=== PATIENT | female | born 1980 | race African-American/Black ===

== ENCOUNTER 2016-07-17 15:35 | Emergency (ER) | payer OTHER ==
[2016-07-17 15:46] VITALS: BP 139/87; PULSE 74; TEMP 98.8; BMI 23.4
--- NOTE | 2016-07-17 16:51 | PDOC ---
History of Present Illness - General Chief Complaint: Pain, Acute Stated Complaint: LEG PAIN Time Seen by Provider: 07/17/16 16:29 History Source: Patient - History of Present Illness Occurred: reports: other Lower Extremity Pain Location: left: leg Past History - Past Medical History Allergies/Adverse Reactions: Allergies Allergy/AdvReac Type Severity Reaction Status Date / Time No Known Drug Allergies Allergy Verified 07/17/16 15:46 Home Medications: Ambulatory Orders NK [No Known Home Medication] 07/17/16 Anemia: No Asthma: No Cancer: No Cardiac Disorders: No CVA: No COPD: No CHF: No Dementia: No Diabetes: No GI Disorders: No Disorders: No HTN: No Hypercholesterolemia: No Liver Disease: No Seizures: No Thyroid Disease: No Other medical history: denies - Surgical History Abdominal Surgery: No Appendectomy: No Cardiac Surgery: No Cholecystectomy: No Lung Surgery: No Neurologic Surgery: No Orthopedic Surgery: No - Psycho/Social/Smoking Cessation Hx Suicidal Ideation: No Smoking History: Never smoked Have you smoked in the past 12 months: No Information on smoking cessation initiated: No Hx Alcohol Use: No Drug/Substance Use Hx: No Substance Use Type: None Hx Substance Use Treatment: No Review of Systems - Review of Systems Constitutional: No: Chills, Fever Respiratory: No: Shortness of Breath Cardiac (ROS): No: Chest Pain, Palpitations Integumentary: No: Erythema *Physical Exam - Vital Signs Last Vital Signs Temp Pulse Resp BP Pulse Ox 98.8 F 74 18 139/87 99 07/17/16 15:44 07/17/16 15:44 07/17/16 15:44 07/17/16 15:44 07/17/16 15:44 - Physical Exam General Appearance: Yes: Appropriately Dressed. No: Apparent Distress HEENT: positive: Normal Voice Neck: positive: Supple Respiratory/Chest: negative: Respiratory Distress Extremity: positive: Normal Inspection, Tender (to medial L leg near knee, no ttp to calf, no swelling, erythema, pedal pusles intact) Integumentary: positive: Dry, Warm Neurologic: positive: Fully Oriented, Alert, Normal Mood/Affect Medical Decision Making - Medical Decision Making 07/17/16 16:46 35-year-old female, denies any past medical history, here with left calf pain 2 weeks. Pain located to medial aspect of left calf, described as achy and constant. Has not taken ahything for pain. Denies any trauma or other inciting agents. No obvious risk factors for DVT/PE. No chest pain, shortness of breath or palpitations. Denies any fever or chills. Patient well-appearing and stable with minimal tenderness to palpation to superior aspect of medial left leg, no skin changes otherwise. Pain possibly muscular. Unlikely DVT. DC with [id number] medication and PMD follow-up as needed 07/17/16 16:49 *DC/Admit/Observation/Transfer Diagnosis at time of Disposition: Leg pain, left - Discharge Dispostion Disposition: HOME Condition at time of disposition: Good - Patient Instructions Printed Discharge Instructions: DI for Calf Muscle Strain Additional Instructions: Take Motrin as needed for pain and if pain persists follow-up with your PMD
== END 2016-07-17 16:50 | disposition home or self-care (01) ==
LOC: JERFT 15:35
DX: M79.1 Myalgia (principal); M79.662 Pain in left lower leg
CPT/HCPCS: 99281-25